=== PATIENT | female | born 1980 | race Caucasian/White ===

== ENCOUNTER 2017-10-26 12:53 | Emergency (ER) | payer OTHER, SELFPAY ==
--- OUTSIDE RECORDS SUMMARY | 2017-10-26 12:55 | XMS REPORT ---
:1980 [facility] Address [address] [place] [address] Dr. Woodall [address] [place] [id number] Care Team Providers Name Role Phone Unavailable Unavailable Unavailable Problems This patient has no known problems. Allergies, Adverse Reactions, Alerts This patient has no known allergies or adverse reactions. Medications This patient has no known medications. Encounters Start End Encounter Admission Attending Care Care Encounter Date/Time Date/Time Type Type Clinicians Facility Department ID 2017-09-28 2017-10-[address] [facility] [id number] 00:00:00 00:00:00
--- NOTE | 2017-10-26 13:43 | RAD REPORT ---
EXAM DESCRIPTION: CT - Head Brain Wo Cont - 10/26/2017 1:24 pm CLINICAL HISTORY: Head injury status post fall. Head pain COMPARISON: 2014 TECHNIQUE: Computed axial tomography of the head was obtained. IV contrast was not requested. All CT scans are performed using dose optimization technique as appropriate and may include automated exposure control or mA/KV adjustment according to patient size. FINDINGS: An intracranial bleed is not seen . The ventricles are normal in caliber. No extra-axial fluid collection is noted. Fluid within the sinuses/ mastoids is not seen. IMPRESSION: No acute intracranial abnormality is seen. If patient's symptoms persist MRI of the bra in would be recommended.
[2017-10-26] MEDS ORDERED: ACETAMINOPHEN 500 MG TAB ONE (14:09)
--- NOTE | 2017-10-26 14:30 | EDPHYS ---
Physician Documentation [facility] Emergency Department Name: Adriana Dc Age: 36 yrs Sex: Female : 1980 Arrival Date: 10/26/2017 Time: 12:55 Bed 20 Private MD: David Beckett ED Physician Yadiel Li HPI: 10/26 13:58 This 36 yrs old Female presents to ER via EMS with complaints of Headache. cp 14:00 The patient complains of pain to the top of head. cp 14:00 The patient describes the headache as aching. Onset: The symptoms/episode cp began/occurred today. Associated signs and symptoms: Pertinent negatives: altered mental status, dizziness, fever, neck stiffness, paresthesias, vision changes, vomiting, weakness. Severity of symptoms: in the emergency department the pain a " 5" out of "10". Patient reports slip and fall in kitchen today with LOC for unknown duration. Fall was unwitnessed. 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 - Social history:: Smoking status: Patient/guardian denies using tobacco, Patient/guardian denies using alcohol. - Ebola Screening: : Patient negative for fever greater than or equal to 101.5 degrees Fahrenheit, and additional compatible Ebola Virus Disease symptoms Patient denies exposure to infectious person Patient denies travel to an Ebola-affected area in the 21 days before illness onset. ROS: 14:05 Constitutional: Negative for body aches, chills, fever, poor PO intake. cp 14:05 Eyes: Negative for injury, pain, redness, and discharge. cp 14:05 ENT: Negative for drainage from ear(s), ear pain, sore throat, difficulty swallowing, difficulty handling secretions. 14:05 Neck: Negative for pain with movement, pain at rest, stiffness, bony tenderness. 14:05 Cardiovascular: Negative for chest pain, edema, palpitations. 14:05 Respiratory: Negative for cough, shortness of breath, wheezing. 14:05 Abdomen/GI: Negative for abdominal pain, nausea, vomiting, and diarrhea, constipation. 14:05 : Negative for urinary symptoms. 14:05 Skin: Negative for cellulitis, rash. 14:05 Neuro: Positive for headache, loss of consciousness, Negative for altered mental status, seizure activity, syncope, near syncope, weakness. 14:05 All other systems are negative. Exam: 14:10 Constitutional: The patient appears in no acute distress, alert, awake, non-toxic, well cp developed, well nourished. 14:10 Head/Face: Normocephalic, atraumatic. Eyes: Pupils equal round and reactive to light, cp extra-ocular motions intact. Lids and lashes normal. Conjunctiva and sclera are non-icteric and not injected. Cornea within normal limits. Periorbital areas with no swelling, redness, or edema. ENT: Nares patent. No nasal discharge, no septal abnormalities noted. Tympanic membranes are normal and external auditory canals are clear. Oropharynx with no redness, swelling, or masses, exudates, or evidence of obstruction, uvula midline. Mucous membranes moist. 14:10 Neck: C-spine: vertebral tenderness, is not appreciated, crepitus, is not appreciated, ROM/movement: is normal, is supple, without pain, no range of motions limitations, no nuchal rigidity. 14:10 Chest/axilla: Inspection: normal, Palpation: is normal, no crepitus, no tenderness. 14:10 Cardiovascular: Rate: normal, Rhythm: regular, Pulses: Pulses are 2+ in right radial artery and left radial artery. 14:10 Respiratory: the patient does not display signs of respiratory distress, Respirations: normal, no use of accessory muscles, no retractions, no splinting, no tachypnea, labored breathing, is not present, Breath sounds: are clear throughout, no decreased breath sounds, no stridor, no wheezing. 14:10 Abdomen/GI: Inspection: abdomen appears normal, Bowel sounds: active, all quadrants, Palpation: abdomen is soft and non-tender, in all quadrants, rebound tenderness, is not appreciated, voluntary guarding, is not appreciated, involuntary guarding, is not appreciated. 14:10 Back: pain, is absent, ROM is normal. 14:10 Skin: cellulitis, is not appreciated, no rash present. 14:10 Neuro: Orientation: to person, place \\T\\ time. Mentation: lucid, able to follow commands, Cerebellar function: is grossly normal, Motor: moves all fours, strength is normal, Sensation: no obvious gross deficits, Gait: is steady, at a normal pace, without difficulty. Vital Signs: 13:00 BP 129 / 92; Pulse 81; Resp 20; Temp 97.4; Pulse Ox 98% on R/A; Weight 63.5 kg (R); dm5 Height 5 ft. 4 in. (162.56 cm) (R); Pain 8/10; 14:27 BP 125 / 89; Pulse 80; Resp 18; Pulse Ox 100% on R/A; hj 13:00 Body Mass Index 24.03 (63.50 kg, 162.56 cm) dm5 MDM: 13:53 Patient medically screened. cp 14:30 Data reviewed: vital signs, nurses notes, radiologic studies, CT scan. cp 14:30 Differential diagnosis: intracerebral hemorrhage, subarachnoid bleed, concussion, skull cp fracture. Counseling: I had a detailed discussion with the patient and/or guardian regarding: the historical points, exam findings, and any diagnostic results supporting the discharge/admit diagnosis, radiology results, to return to the emergency department if symptoms worsen or persist or if there are any questions or concerns that arise at home. ED course: VSS. Discussed negative head CT results. Will discharge to home with head injury precautions. 10/26 12:56 Order name: CT Head Brain wo Cont; Complete Time: 13:53 10/26 13:53 Interpretation: Report reviewed. 10/26 13:57 Order name: Urine Dipstick-Ancillary (obtain specimen); Complete Time: 14:16 cp 10/26 13:57 Order name: Urine Test (obtain specimen); Complete Time: 14:16 cp Administered Medications: 13:59 Drug: Tylenol 1000 mg Route: PO; hj 14:05 Follow up: Response: No adverse reaction; Pain is decreased hj 14:28 Follow up: Response: No adverse reaction hj Disposition: 15:03 Co-signature as Attending Physician, Yadiel Li MD I agree with the assessment and kdr plan of care. Disposition: 10/26/17 14:30 Discharged to Home. Impression: Concussion with loss of consciousness of unspecified duration. - Condition is Stable. - Discharge Instructions: Concussion, Adult, Head Injury, Adult. - Medication Reconciliation Form, Thank You Letter, Antibiotic Education, Prescription Opioid Use form. - Follow up: Private Physician; When: 1 - 2 days; Reason: Recheck today's complaints. - Problem is new. - Symptoms have improved. Signatures: Dispatcher [employer] Loni Goodson RN RN dm5 Yadiel Li MD MD [facility] Alok Issa RN RN Austyn Johnson PA PA cp Corrections: (The following items were deleted from the chart) 14:33 14:30 10/26/2017 14:30 Discharged to Home. Impression: Concussion with loss of hj consciousness of unspecified duration. Condition is Stable. Forms are Medication Reconciliation Form, Thank You Letter, Antibiotic Education, Prescription Opioid Use. Follow up: Private Physician; When: 1 - 2 days; Reason: Recheck today's complaints. Problem is new. Symptoms have improved. cp
--- NOTE | 2017-10-26 14:30 | ER ---
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 Pain to right aj forehead. Total recollection of all events, awake and alert x 4. Transition of care: patient was not received from another setting of care. Onset of symptoms was October 26, 2017. Risk Assessment:. Initial Sepsis Screen: Does the patient meet any 2 criteria? No. Patient's initial sepsis screen is negative. Does the patient have a suspected source of infection? No. Patient's initial sepsis screen is negative. Care prior to arrival: None. 12:56 Method Of Arrival: EMS: [facility] aj 12:56 Acuity: BROOK 3 aj 13:11 Risk Assessment: Do you want to hurt yourself or someone else? Patient reports no hj desire to harm self or others. Triage Assessment: 13:10 Headache History: Denies prior headaches. General: Appears in no apparent distress. hj uncomfortable, Behavior is calm, cooperative, appropriate for age. Pain: Complains of pain in head. Neuro: Level of Consciousness is awake, alert, obeys commands, Oriented to person, place, time, situation, Appropriate for age. 13:11 Pain: Pain currently is 5 out of 10 on a pain scale. Pain began Also complains of no hj other associated symptoms. 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 - Social history:: Smoking status: Patient/guardian denies using tobacco, Patient/guardian denies using alcohol. - Ebola Screening: : Patient negative for fever greater than or equal to 101.5 degrees Fahrenheit, and additional compatible Ebola Virus Disease symptoms Patient denies exposure to infectious person Patient denies travel to an Ebola-affected area in the 21 days before illness onset. Screenin:10 Abuse screen: Denies threats or abuse. Denies injuries from another. Nutritional hj screening: No deficits noted. Tuberculosis screening: No symptoms or risk factors identified. Fall Risk Assessment: 13:03 General: Appears in no apparent distress. uncomfortable, Behavior is calm, cooperative, hj appropriate for age. Pain: Complains of pain in head. 13:03 Neuro: Level of Consciousness is awake, alert, obeys commands, Oriented to person, hj place, time, situation, Appropriate for age. Cardiovascular: Capillary refill < 3 seconds Patient's skin is warm and dry. Respiratory: Airway is patent Respiratory effort is even, unlabored, Respiratory pattern is regular, symmetrical. GI: No signs and/or symptoms were reported involving the gastrointestinal system. : No signs and/or symptoms were reported regarding the genitourinary system. EENT: No signs and/or symptoms were reported regarding the EENT system. Derm: No signs and/or symptoms reported regarding the dermatologic system. Musculoskeletal: No signs and/or symptoms reported regarding the musculoskeletal system. 14:26 Reassessment: Patient and/or family updated on plan of care and expected duration. Pain hj level reassessed. Patient is alert, oriented x 3, equal unlabored respirations, skin warm/dry/pink. smells ETOH, pt making a phone call;. 14:27 Reassessment: provider in room;. hj Vital Signs: 13:00 BP 129 / 92; Pulse 81; Resp 20; Temp 97.4; Pulse Ox 98% on R/A; Weight 63.5 kg (R); dm5 Height 5 ft. 4 in. (162.56 cm) (R); Pain 8/10; 14:27 BP 125 / 89; Pulse 80; Resp 18; Pulse Ox 100% on R/A; hj 13:00 Body Mass Index 24.03 (63.50 kg, 162.56 cm) dm5 ED Course: 12:55 Patient arrived in ED. rg4 12:56 David Beckett DO is Private Physician. rg4 12:57 Triage completed. aj 12:57 Patient placed in waiting room. aj 13:00 Arm band placed on left wrist. Patient placed in an exam room, on a stretcher. dm5 13:10 Alok Issa, RN is Primary Nurse. hj 13:11 Patient has correct armband on for positive identification. Placed in gown. Bed in low hj position. Call light in reach. Side rails up X 1. 13:20 CT completed. Patient tolerated procedure well. Patient moved to CT via wheelchair. vr Patient moved back from CT. 13:24 CT Head Brain wo Cont In Process Unspecified. EDMS 13:53 Austyn Aleman PA is PHCP. cp 13:53 Yadiel Li MD is Attending Physician. cp 14:33 No provider procedures requiring assistance completed. Patient did not have IV access hj during this emergency room visit. Administered Medications: 13:59 Drug: Tylenol 1000 mg Route: PO; hj 14:05 Follow up: Response: No adverse reaction; Pain is decreased hj 14:28 Follow up: Response: No adverse reaction hj Outcome: 14:30 Discharge ordered by MD. cp 14:33 Discharged to home ambulatory. hj 14:33 Condition: stable 14:33 Discharge instructions given to patient, Instructed on discharge instructions, follow up and referral plans. Demonstrated understanding of instructions, follow-up care. 14:33 Patient left the ED. hj Signatures: Dispatcher [employer] Loni Goodson, Christine Foy RN, RN Yulissa Talamantes Henry, RN RN hj Page, Corey, PA PA cp Garcia, Rubi rg4
== END 2017-10-26 14:33 | disposition home or self-care (01) ==
LOC: ER 12:53
DX: S06.0X9A Concussion with loss of consciousness of unspecified duration, initial encounter (principal); W01.0XXA Fall on same level from slipping, tripping and stumbling without subsequent striking against object, initial encounter; Y93.9 Activity, unspecified; Y92.000 Kitchen of unspecified non-institutional (private) residence as the place of occurrence of the external cause; Z98.82 Breast implant status; F31.9 Bipolar disorder, unspecified; F32.9 Major depressive disorder, single episode, unspecified
CPT/HCPCS: 70450; 99284

== ENCOUNTER 2018-09-23 12:26 | Emergency (ER) | payer SELFPAY ==
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
[2018-09-23] MEDS ORDERED: HYDROCODONE/APAP 5/325 MG TAB ONE (14:32)
[2018-09-23] MEDS ORDERED: IBUPROFEN 400 MG TAB ONE (14:32)
[2018-09-23] MEDS ORDERED: TETRACAINE HCL 0.5% 4ML OPTH ONE (14:33)
[2018-09-23] MEDS ORDERED: FLUORESCEIN SODIUM 1 MG/WRAP ONE (14:33)
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
[2018-09-23 15:06] LABS: Urine Blood 1+ (NEG); Urine Glucose NEGATIVE (NEG); Urine Protein TRACE (NEG); Urine Specific Gravity 1.025 (1.005-1.030); Urine pH 6.5 (5.0-7.0)
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
== END 2018-09-23 15:05 | disposition home or self-care (01) ==
LOC: ER 12:26
DX: S02.2XXA Fracture of nasal bones, initial encounter for closed fracture (principal); Y04.0XXA Assault by unarmed brawl or fight, initial encounter; F31.9 Bipolar disorder, unspecified; F32.9 Major depressive disorder, single episode, unspecified
CPT/HCPCS: 70450; 70486; 71045; 72125; 76377; 81003; 81025; 99284

== ENCOUNTER 2022-04-04 10:03 | Emergency (ER) | payer SELFPAY ==
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
[2022-04-04] MEDS ORDERED: KETOROLAC 30 MG/ML INJ ONE (10:38)
[2022-04-04] MEDS ORDERED: CYCLOBENZAPRINE 10 MG TAB ONE (10:38)
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
--- NOTE | 2022-04-04 11:43 | RAD REPORT ---
EXAM DESCRIPTION: RAD - Foot Left 3 View - 04/04/2022 10:30 am CLINICAL HISTORY: PAIN COMPARISON: No comparisons FINDINGS: Rounded abnormal calcified mass is seen adjacent to the fifth metatarsal head. There is as sociated soft tissue swelling. Possibilities would include a chondroid soft tissue mass. Another poss ibility would be tumoral calcinosis. Nonemergent MRI of the foot with contrast would be recommended.
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
[2022-04-04] MEDS ORDERED: HYDROCODONE/APAP 5/325 MG TAB ONE (12:17)
[2022-04-04 12:41] VITALS: TEMP 98.6
[2022-04-04 12:43] VITALS: BP 136/98; O2SAT 99
== END 2022-04-04 12:35 | disposition home or self-care (01) ==
LOC: ER 10:03
DX: S02.2XXA Fracture of nasal bones, initial encounter for closed fracture (principal); S93.692A Other sprain of left foot, initial encounter; S05.12XA Contusion of eyeball and orbital tissues, left eye, initial encounter
CPT/HCPCS: 70450; 70486; 72125; 76377

== ENCOUNTER → 2023-05-08 | Emergency (ER) | payer SELFPAY ==
[~2023-05-08] MED LIST: LORazepam 2 MG/ML VIAL ONE; MAGNESIUM SULFATE 1 gm IVPB 1 GM/100 ML BAG IV ONE; NA CHLORIDE 0.9% 1,000 ML ONE; POTASSIUM 25 MEQ EFFERV TAB ONE
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
[2023-05-08 13:08] LABS: Absolute Basophils 0.1 K/uL (0-0.5); Absolute Lymphocytes (CBC) 0.5 K/uL (0.7-4.9); Absolute Monocytes 0.7 K/uL (0.1-1.3); Absolute Neutrophil 8.7 K/uL (1.8-8.0); Basophils % 1.5 % (0-1.3); Eosinophils % 0.1 % (0-4.4); Hematocrit 33.2 % (36.0-45.0); Hemoglobin 10.5 g/dL (12.0-15.0); Lymphocytes % 4.5 % (15.3-44.8); MCH 21.6 pg (27.0-35.0); MCHC 31.8 g/dL (32.0-36.0); MPV 6.5 fL (7.6-11.3); Monocytes % 6.7 % (3.3-12.3); Neutrophils % 87.2 % (41.7-73.7); Platelets 374 thou/uL (152-406); RBC Red Blood Cell Count 4.88 M/uL (3.86-4.86); Red Cell Distribution Width 22.1 % (12.1-15.2)
[2023-05-08 13:16] LABS: PT Prothrombin Time 11.3 SECONDS (9.5-12.5); Protime INR 1.03
[2023-05-08 13:31] LABS: Platelet Estimate ADEQ; White Blood Cell Scan OK (OK)
[2023-05-08 13:32] LABS: Anisocytosis 2+; Blood Morphology Comment NOTED (NOT SEEN); Hypochromasia 1+; Microcytosis 1+
[2023-05-08 13:34] LABS: Anion Gap 14.2 mEq/L (5.0-15.0); Potassium 3.2 mEq/L (3.5-5.1)
[2023-05-08 13:35] LABS: Albumin 4.2 g/dL (3.4-5.0); Bilirubin Direct 0.2 mg/dL (0-0.2); Bilirubin Indirect, Calculated 0.7 mg/dL (0.2-0.8); Bilirubin Total 0.9 mg/dL (0.2-1.0); Globulin 4.3 g/dL (2.3-3.5); Magnesium 1.3 mg/dL (1.6-2.4); Protein, Total 8.5 g/dL (6.4-8.2); Thyroid Stimulating Hormone 4.72 uIU/mL (0.358-3.740); Troponin High Sensitivity 4.4 pg/mL (<58.9)
[2023-05-08 13:43] LABS: Barbiturates NEGATIVE (NEGATIVE); Benzodiazepines NEGATIVE (NEGATIVE); Cocaine NEGATIVE (NEGATIVE); METHAMPHETAM POSITIVE (NEGATIVE); Methadone NEGATIVE (NEGATIVE); Opiates NEGATIVE (NEGATIVE); Phencyclidine NEGATIVE (NEGATIVE); THC Cannibis POSITIVE (NEGATIVE)
--- NOTE | 2023-05-08 14:32 | RAD REPORT ---
EXAM DESCRIPTION: [facility] Single View05/08/2023 1:26 pm CLINICAL HISTORY: CHEST PAIN COMPARISON: Chest Single View dated 09/23/2018 TECHNIQUE: Portable AP view of the chest. FINDINGS: The lungs are clear. No pneumothorax or effusion. The cardiomediastinal contours are unre markable. IMPRESSION: No acute cardiopulmonary process.
--- NOTE | 2023-05-08 14:59 | RAD REPORT ---
EXAM DESCRIPTION: CT - Chest For Pe Angio - 05/08/2023 2:04 pm CLINICAL HISTORY: CHEST PAIN COMPARISON: No comparisons TECHNIQUE: Thin axial CT images of the chest were obtained following administration of 100 mL Isovue 370 IV contrast. Multiplanar reconstructions, and maximum intensity projection reconstructions were generated and reviewed. Exam utilizes a protocol for optimal evaluation of pulmonary arterial tree. All CT scans are performed using dose optimization technique as appropriate and may include automated exposure control or mA/KV adjustment according to patient size. FINDINGS: Pulmonary arteries are normal. No emboli or other suspicious finding. No acute or signific ant aorta findings. No mass or infiltrate in the lung parenchyma. Noninclusion of the posterior costophrenic angles limit s evaluation. No pleural thickening or pleural effusion. No pneumothorax. No abnormal mediastinal or hilar masses or lymphadenopathy seen. No chest wall mass or abnormal axill iary lymphadenopathy. Diffuse hepatic parenchymal hypoattenuation suggesting steatosis. IMPRESSION: No evidence of acute central pulmonary emboli. Negative CT scan of the chest for other acute findings. Diffuse hepatic parenchymal hypoattenuation suggesting steatosis.
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
--- NOTE | 2023-05-08 15:10 | ER ---
Nurse's Notes [facility] Name: Adriana Dc Age: 42 yrs Sex: Female : 1980 Arrival Date: 05/08/2023 Time: 12:25 Bed 20 Private MD: Diagnosis: Adverse effect of amphetamines Presentation: 05/07 12:32 Chief complaint: Patient states: High BP at home, 200s systolic, also reports feeling ph shaky, palpitations, sweating. Coronavirus screen: Vaccine status: Patient reports receiving the 2nd dose of the covid vaccine. Ebola Screen: No symptoms or risks identified at this time. Initial Sepsis Screen: Does the patient meet any 2 criteria? No. Patient's initial sepsis screen is negative. Does the patient have a suspected source of infection? No. Patient's initial sepsis screen is negative. Risk Assessment: Do you want to hurt yourself or someone else? Patient reports no desire to harm self or others. Onset of symptoms was May 08, 2023. 12:32 Method Of Arrival: Ambulatory ph 12:32 Acuity: BROOK 2 ph Triage Assessment: 12:36 General: Appears in no apparent distress. uncomfortable, Behavior is cooperative, ph anxious. Pain: Denies pain. Cardiovascular: Reports palpitations. Respiratory: Airway is patent Respiratory effort is even, unlabored. Historical: - Allergies: 12:35 No Known Allergies; ph - PMHx: 12:35 Bipolar disorder; Depression; Hypertensive disorder; ph - PSHx: 12:35 right ankle surgery x2; breast augmentation; ph - Immunization history:: Adult Immunizations unknown. - Social history:: Smoking status: Patient reports the use of cigarette tobacco products, smokes one-half pack cigarettes per day. Screenin:[address] [facility] ED Fall Risk Assessment (Adult) History of falling in the last 3 months, cp4 including since admission No falls in past 3 months (0 pts) Confusion or Disorientation No (0 pts) Intoxicated or Sedated No (0 pts) Impaired Gait No (0 pts) Mobility Assist Device Used No (0 pt) Altered Elimination No (0 pt) Score/Fall Risk Level 0 - 2 = Low Risk Oriented to surroundings, Maintained a safe environment, Assessed \T\ reinforced patient's understanding of fall precautions, Hourly rounding (assess needs \T\ fall precautionary measures) done. Abuse screen: Denies threats or abuse. Nutritional screening: No deficits noted. Tuberculosis screening: No symptoms or risk factors identified. Assessment: 13:34 General: Appears uncomfortable, Behavior is calm, cooperative, appropriate for age. cp4 Pain: Denies pain. Cardiovascular: Reports diaphoresis, palpitations, Rhythm is sinus tachycardia. 15:13 Reassessment: Pending discharge. IV fluids need to finish. cp4 Vital Signs: 12:32 BP 160 / 118; Pulse 120; Resp 24; Temp 96.8; Pulse Ox 100% on R/A; Weight 66.68 kg; ph Height 5 ft. 4 in. ; 14:49 BP 162 / 95; Pulse 95; Resp 22; Pulse Ox 97% on R/A; sb4 12:32 Body Mass Index 25.23 (66.68 kg, 162.56 cm) ph ED Course: 12:27 Patient arrived in ED. rg4 12:31 Kita Contreras PA-C is PHCP. sb4 12:31 Farhad Sommers DO is Attending Physician. sb4 12:35 Triage completed. ph 12:36 Arm band placed on Patient placed in waiting room, Patient notified of wait time. ph 12:52 Cass Alcantara is Primary Nurse. cp4 13:02 No provider procedures requiring assistance completed. Inserted saline lock: 20 gauge cp4 in right antecubital area, using aseptic technique. Blood collected. 13:03 TSH Sent. cp4 13:03 Basic Metabolic Panel Sent. cp4 13:03 CBC with Diff Sent. cp4 13:03 D-Dimer Sent. cp4 13:03 Magnesium Sent. cp4 13:03 LFT's Sent. cp4 13:03 NT PRO-BNP Sent. cp4 13:03 PT-INR Sent. cp4 13:03 Troponin HS Sent. cp4 13:28 XRAY Chest (1 view) In Process Unspecified. EDMS 13:28 UDS Sent. cp4 13:34 Bed in low position. Call light in reach. Side rails up X 1. cp4 14:06 CT Chest For PE Angio In Process Unspecified. EDMS Administered Medications: 13:28 Drug: Ativan IVP 1 mg IVP once Route: IVP; Site: right antecubital; cp4 13:29 Drug: NS 0.9% IV 1000 ml IV at 1 bolus Per protocol; 1000 mL bolus Route: IV; Rate: 1 cp4 bolus; Site: right antecubital; 13:55 Drug: Magnesium Sulfate IVPB 1 grams IVPB once over 1 hrs Route: IVPB; Infused Over: 1 cp4 hrs; Site: right antecubital; 13:55 Drug: Potassium PO Effervescent Tablet 50 mEq PO once; dissolve in 4 ounces of water or cp4 juice Route: PO; 15:08 Drug: NS 0.9% IV 1000 ml IV at 1 bolus Per protocol; 1000 mL bolus Route: IV; Rate: 1 cp4 bolus; Site: right antecubital; Medication: 13:34 VIS not applicable for this client. cp4 Outcome: 15:09 Discharge ordered by MD. george 16:02 Patient left the ED. iw Signatures: Dispatcher [employer] Dania Gorman RN RN iw Hall, Patricia, RN RN ph Garcia, Kita Dave PA-C PACass Garcia [facility]
[2023-05-08 17:33] VITALS: BP 162/95; TEMP 96.8; O2SAT 97
--- NOTE | 2023-05-09 14:09 | EKG ---
Test Date: 2023-05-08 Test Time: 12:51:12 Tetryl Boiling Tub Operator: THA MEASUREMENT RESULTS: Intervals: Rate: 101 WY: 176 QRSD: 94 QT: 374 QTc: 484 Oil Trough: P: 66 WY: 176 QRS: 83 T: 15 INTERPRETIVE STATEMENTS: Sinus tachycardia Otherwise normal ECG Compared to ECG 06/21/2014 00:37:40 Sinus bradycardia no longer present Electronically Signed On 05-09-23 14:05:52 CDT by Jeffery Grande
== END ==
LOC: ER 12:25
DX: R00.2 Palpitations (principal); T43.625A Adverse effect of amphetamines, initial encounter; Z98.82 Breast implant status
CPT/HCPCS: 36415; 71045; 71275; 80048; 80076; 80307; 83735; 83880; 84439; 84443; 84484; 85025; 85379; 85610; 93005; 96374; 96375; 99284; J3475; J7030; Q9967